=== PATIENT | male | born 1940 | race Caucasian/White ===

== ENCOUNTER 2020-09-12 14:03 | Observation (INO) | payer MEDICARE, SELFPAY ==
[2020-09-12] VITALS (7 sets, daily range): BP systolic 117–134; BP diastolic 62–78; PULSE 65–89; RESP 12–16; TEMP 36.3–36.7; O2SAT 96–100; BMI 25.2
--- NOTE | ~2020-09-12 | US_ITS ---
EXAMINATION: US abdomen limited EXAM DATE: 09/12/2020 16:47 INDICATION: Right upper quadrant pain. TECHNIQUE: Multiple grayscale and Doppler images of the abdomen right upper quadrant were obtained (b y a technologist who performed the scan) and subsequently reviewed. There is no prior study for nimo quintanilla. FINDINGS: The pancreatic head and body are normal in appearance. The pancreatic tail is not visualized. The l iver has normal echogenicity and contour. There are no focal liver lesions identified. There is no evidence of intrahepatic biliary duct dilation. Portal venous flow was seen in the hepatopedal, nor mal direction and has normal Doppler waveform. No right-sided hydronephrosis. Common bile duct measures 7 mm, which is normal for age. The gallbladder wall is normal in thickness, with expected amount of distention. No sonographic evidence of pericholecystic fluid. There is no cholelithiases. Technologist performing exam reports patient did not demonstrate sonographic Porter's sign. Please note that this sign is less reliable in patients who have received pain medication. IMPRESSION: 1. Unremarkable abdominal ultrasound exam. Reviewed, dictated and finalized at location A.
--- NOTE | ~2020-09-12 | CT_ITS ---
EXAMINATION: CT abdomen pelvis wo con EXAM DATE: 09/12/2020 18:31 INDICATION: Right flank pain and hematuria. TECHNIQUE: Spiral CT of the abdomen and pelvis was performed without contrast. Axial, coronal and sag ittal images were reviewed. The dose-length product (DLP) for this examination was 269.33 mGy-cm. T he exposure was tailored according to patient size (auto mA exposure control), and iterative reconstr uction (ASIR) was used as additional dose reduction technique. There is no prior study for compariso n. FINDINGS: There is 7 mm stone in the proximal aspect right ureter. Mild to moderate right-sided hydro nephrosis. There is 7 mm stone right superior calyx, additional punctate mid calyceal stone. Left carlos al peripelvic cysts versus mild to moderate hydronephrosis, but normal calibered ureter. Moderate pro statomegaly. The bladder is unremarkable. The liver, spleen, adrenal glands and pancreas are unrema rkable. Gallbladder is unremarkable. No biliary obstruction. There is no retroperitoneal or pelvic lymphadenopathy. There is mild scattered arteriosclerotic disease. The appendix is normal. There is small sliding gastroesophageal hiatal hernia. There is moderate am ount of colonic stool. There is mild to moderate scattered colonic diverticulosis. There is no adjac ent inflammatory change to suggest diverticulitis. No free intraperitoneal gas. The heart is monica l in size. There are no pericardial or pleural effusions. Left lower lobe 2 cm granuloma. There ar e no osteoblastic or osteolytic lesions identified. IMPRESSION: 1. Right proximal ureteral 7 mm stone, mild to moderate obstructive nephropathy. 2. Left renal hilar appearance more likely parapelvic cysts than hydronephrosis. 3. Right nephrolithiasis. 4. Moderate prostatomegaly. 5. Scattered colonic diverticulosis. Reviewed, dictated and finalized at location A. IMPRESSION: 1. Right proximal ureteral 7 mm stone, mild to moderate obstructive nephropath y. 2. Left renal hilar appearance more likely parapelvic cysts than hydronephrosi s. 3. Right nephrolithiasis. 4. Moderate prostatomegaly. 5. Scattered colonic diverticulosis.
--- NOTE | ~2020-09-12 | XR_ITS ---
EXAMINATION: XR abdomen/kub 1V DATE: 09/13/2020 05:37 INDICATION: Renal stone TECHNIQUE: A supine view of the abdomen was obtained. COMPARISON: CT dated 09/12/2020 FINDINGS: There are multiple tiny densities within the fecal stream of the colon projecting over the right kidn ey. A more linear 4 mm opacity projecting over the region of the upper pole of the right kidney may r epresent the previous noted right renal stone. A 6 mm proximal right ureteral stone projects over the right lateral margin of the L3-L4 disc space. There are few phleboliths in the pelvis. No dilated lo ops of bowel to suggest obstruction. Large calcified nodule in the left lower lobe consistent with ol d granulomatous disease. IMPRESSION: 1. Right nephrolithiasis. Reviewed, dictated and finalized at location A. IMPRESSION: 1. Right nephrolithiasis.
[2020-09-12 15:11] LABS: Basophils Percent Auto 0.2 % (0.2-1.2); Hemoglobin 15.2 g/dL (14.0-18.0); Immature Granulocyte Absolute 0.03 K/mm3 (0.00-0.031); Immature Granulocyte Percent A 0.2 % (0-0.5); Lymphocytes Absolute Auto 0.77 K/mm3 (0.9-3.2); Lymphocytes Percent Auto 6.4 % (18.3-44.2); Mean Corpuscular HGB Conc 34.5 g/dl (32-36); Mean Corpuscular Hemoglobin 31.5 pg (26-34); Mean Corpuscular Volume 91.1 fl (80-100); Monocytes Absolute Auto 0.4 K/mm3 (0.1-0.6); Monocytes Percent Auto 3.1 % (2.6-8.5); Neutrophils Absolute Auto 10.9 K/mm3 (1.3-6.7); Neutrophils Percent Auto 90.1 % (45.5-73.1); Platelet Count Result 238 k/mm3 (150-375); Red Blood Count 4.83 M/mm3 (4.6-6.20); Red Cell Distribution Width 12.8 % (11.5-14.5); White Blood Count 12.1 K/mm3 (4.5-10.0)
[2020-09-12 15:24] LABS: Add Urine Microscopic? YES; Appearance Urine Cloudy (Clear); Bacteria Urine Trace /hpf; Bilirubin Urine Negative (Negative); Color Urine Yellow (Yellow); Glucose Urine UA Negative (Negative); Ketones Urine Trace mg/dL (Negative); Leukocyte Esterase Ur Trace LEU/UL (Negative); Mucus Urine Rare /lpf; Nitrate Urine Negative (Negative); Protein Urine 1+ mg/dL (Negative); RBC Urine 21-50 /hpf (0-2); Specific Grav Ur 1.024 (1.001-1.035); Squamous Epithelial Cell Urine Rare /hpf (Few); Urobilinogen Urine Negative mg/dL (<2.0)
[2020-09-12 15:28] LABS: Blood Urine Negative (Negative)
[2020-09-12 15:29] LABS: Alanine Aminotransferase 41 U/L (4-50); Albumin Level 4.5 g/dL (3.5-5.1); Alkaline Phosphatase 63 U/L (38-126); Anion Gap 9 mmol/L (8-16); Aspartate Amino Transferase 42 U/L (17-59); Blood Urea Nitrogen 26 mg/dL (9-20); Calcium 9.5 mg/dL (8.4-10.2); Carbon Dioxide 27 mmol/L (22-30); Chloride 103 mmol/L (98-107); Estimated CRCL calculation 33 ml/min; Estimated Glomerular Filt Rate 53; Glucose 121 mg/dL (65-110); Lipase 46 U/L (23-300); Potassium 4.3 mmol/L (3.4-5.0); Sodium 139 mmol/L (137-145)
--- NOTE | 2020-09-12 17:39 | ED.ABDPAIN ---
HPI - Abdominal Pain General Chief Complaint: Abdominal Pain Stated Complaint: right abd pain/vomiting Time Seen by Provider: 09/12/20 15:57 Source: patient Mode of arrival: ambulatory Limitations: no limitations History of Present Illness HPI narrative: 80-year-old male Mostly healthy, did have a somewhat recent prostate procedure Complains of onset at about 3AM of pain in the right upper quadrant and right flank accompanied by nausea Was not exacerbated by eating He denies diarrhea or constipation, fever, dysuria or hematuria, cough or shortness of breath No previous abdominal operations Related Data Allergies Allergy/AdvReac Type Severity Reaction Status Date / Time bacitracin Allergy Intermediate RASH Verified 08/21/20 15:32 neomycin Allergy Intermediate RASH Verified 08/21/20 15:32 polymyxin B Allergy Intermediate RASH Verified 08/21/20 15:32 Review of Systems Review of Systems: All systems reviewed & are unremarkable except as noted in HPI and below Constitutional: Constitutional: Reports no additional constitutional complaints, Denies chills, Denies fever(s) and Denies headache(s) Eyes: Eyes: Reports no additional eye complaints and Denies change in vision ENT: Denies headache(s) and Denies sore throat Cardiovascular: Cardiovascular: Denies chest pain and Denies dyspnea Respiratory: Respiratory: Denies cough and Denies dyspnea Gastrointestinal: Gastrointestinal: Reports abdominal pain, Denies diarrhea, Reports nausea and Reports vomiting Genitourinary: Genitourinary: Denies dysuria and Denies urinary frequency Musculoskeletal: Musculoskeletal: Denies deformity, Denies arthralgias, Denies joint swelling and Denies numbness Integumentary/Breasts: Skin/Breast: Denies rash and Denies wounds Neurologic: Denies headache(s), Denies focal weakness and Denies numbness Psychiatric: Psychiatric: Reports no additional psychiatric complaints Endocrine: Endocrine: Reports no additional endocrine complaints Hematologic/Lymphatic: Hematologic/Lymphatic: Reports no additional hematologic/lymphatic complaints Allergic/Immunologic: Allergic/Immunologic: Reports no additional allergic/immunologic complaints [facility] Surgical History Surgical History (Updated 08/21/20 @ 15:36 by Jose Ann MD) H/O 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 Exam Const: General: cooperative, no acute distress and alert Orientation/consciousness: patient oriented x3 (alert) HENMT: Head: normal to inspection, normocephalic and atraumatic Ears: external ears normal General nose exam: no epistaxis Eyes: Conjunctivae: conjunctivae normal EOM: EOMs intact bilaterally Neck: Neck: normal visual inspection, supple and no JVD Resp: Effort & Inspection: normal respiratory effort and not labored Auscultation: clear to auscultation bilaterally, no rales, no rhonchi, no wheezes and other (BS =) Cardio: Rate: regular rate Rhythm: regular rhythm Heart sounds: no murmurs GI: Inspection: non-distended GI Palp: Yes Soft to palpation, No Tenderness to palpation present (GI), No Guarding due to palpation present (GI) and No Rebound tenderness present : General: Yes no CVA tenderness Skin: General skin exam: normal color and no rashes or lesions noted Neuro: General: patient oriented x3 (alert) and moves all extremities Speech: normal speech Extrem: General: normal to inspection and no pedal edema Psych: Affect: normal affect Course Course Emergency Course: Lg proximal stone, +/- infxn, will need abx, stent, eventual litho d/w dr combs, he will admit, plan procedure tomorrow Vital Signs Vital signs: Vital Signs Temperature 36.5 C 09/12/20 14:29 Pulse Rate 88 09/12/20 14:29 Respiratory Rate 16 09/12/20 14:29 Blood Pressure 121/78 09/12/20 14:29 Pulse Oximetry 99 09/12/20 14:29 Temperature 36.3 C L 09/12/20 20:49 Pulse Rate 82 09/12/20 20:49 Respiratory Rate 16
[2020-09-12] MEDS: KETOROLAC 15 MG/ML VIAL (*BKC) IV PUSH (20:42)
--- NOTE | 2020-09-12 22:07 | PC.NURSE ---
Unit unable to take report at this time. Unit will call ED shortly.
--- NOTE | 2020-09-12 22:57 | ADMGEN ---
This patient, Mario Yepez, was admitted to [address] [place] [address] Room 300-01. Patient/family oriented to hospital policies and general routines including ID bracelet, bed and alarms, visiting hours, pain management, procedures, bathroom and other care routines, personal items, smoking policy, room service/diet, and visiting hours. Information on how to activate the Rapid Response Team has been discussed. Patient/Family are encouraged to report perceived risks to care and to ask questions if they do not understand what they are told or what they should do.
[2020-09-12] MEDS: LACTATED RINGERS 1,000 ML 80 ML IV CONT (23:25)
[2020-09-13 06:00] VITALS: BP 123/71; PULSE 86; RESP 18; TEMP 36.6; O2SAT 100
--- NOTE | 2020-09-13 06:57 | PM.IMHP ---
H&P: HPI History of Present Illness Date/Time: 09/13/20 06:57 A 80-year-old who has spontaneously passed a ureteral stone in the remote past. He has a history of BPH and has undergone Rezum therapy in [facility]. He presents to the ER here with acute onset right flank pain associated with nausea and no vomiting. He denies fevers chills or gross hematuria. Imaging reveals a 7 mm right proximal ureteral stone with moderate hydronephrosis and a 7 mm right mid calyceal stone. Subsequent to admission he has been pain-free. 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 Social History Social History Smoking status: Never smoker Alcohol intake: never Substance use: never Gender identity (if verbalized by the patient): Male Spiritual care concerns: No Meds Home Medications and Allergies Home Medications Medication Instructions Recorded Confirmed Type simvastatin 20 mg PO DAILY 09/12/20 09/12/20 History Allergies Allergy/AdvReac Type Severity Reaction Status Date / Time bacitracin Allergy Intermediate RASH Verified 08/21/20 15:32 neomycin Allergy Intermediate RASH Verified 08/21/20 15:32 polymyxin B Allergy Intermediate RASH Verified 08/21/20 15:32 Vital Signs Vital Signs - 24 hr 09/12/20 14:29 09/12/20 16:50 09/12/20 18:03 Temperature 97.7 F 97.7 F Pulse Rate 88 65 89 Respiratory Rate 16 12 Blood Pressure 121/78 126/72 134/75 Pulse Oximetry 99 100 99 09/12/20 19:04 09/12/20 20:49 09/12/20 22:20 Temperature 97.7 F 97.4 F L 98.1 F Pulse Rate 81 82 88 Respiratory Rate 16 16 Blood Pressure 128/62 117/65 117/69 Pulse Oximetry 99 96 98 09/12/20 23:47 Temperature Pulse Rate 88 Respiratory Rate 16 Blood Pressure Pulse Oximetry 98 Exam Const: General: no acute distress Resp: Effort & Inspection: normal respiratory effort GI: Inspection: non-distended GI Palp: No abdominal tenderness and No Guarding due to palpation present (GI) Auscultation: normal bowel sounds H&P: Results Labs Labs: Short CBC 09/12/20 Range/Units 14:43 WBC 12.1 H (4.5-10.0) K/mm3 Hgb 15.2 (14.0-18.0) g/dL Hct 44.0 (42.0-52.0) % Plt Count 238 (150-375) k/mm3 BMP 09/12/20 14:43 Sodium 139 Potassium 4.3 Chloride 103 Carbon Dioxide 27 BUN 26 H Creatinine 1.30 Glucose 121 H Calcium 9.5 Liver Function 09/12/20 Range/Units 14:43 Total Bilirubin 1.0 (0.2-1.3) mg/dL AST 42 (17-59) U/L ALT 41 (4-50) U/L Alkaline Phosphatase 63 (38-126) U/L Albumin 4.5 (3.5-5.1) g/dL Urine 09/12/20 Range/Units 14:43 Urine Color Yellow (Yellow) Urine Appearance Cloudy H (Clear) Urine pH 5.0 (5.0-9.0) Ur Specific Bland 1.024 (1.001-1.035) Urine Protein 1+ H (Negative) mg/dL Urine Glucose (UA) Negative (Negative) mg/dL Assessment and Plan Assessment and plan (1) Right ureteral stone: Code(s): N20.1 - Calculus of ureter Status: Acute (2) Right renal stone: Code(s): N20.0 - Calculus of kidney Status: Acute Assessment and Plan: This patient has been pain-free since admission he is requesting discharge with outpatient therapy. We discussed options and elected to schedule right ESWL. He is to get a KUB today for stone position.
--- NOTE | 2020-09-13 07:06 | PM.DS ---
DS: Admitting Diagnosis Admitting Diagnosis Admitting Diagnosis: Right proximal ureteral stone DS: Summary Hospital Course Hospital Course: Patient was visiting his daughter from [place] who presented to the ER with right flank pain. Imaging demonstrated an obstructing 7 mm right proximal ureteral stone and a 7 mm right kidney stone. He was admitted overnight for hydration and analgesics. Subsequent to admission he had essentially no pain. He requested discharge with outpatient therapy. We will schedule him for right ESWL. Time Spent with Patient Time attestation: Total time spent providing and/or coordinating discharge services: 20 min. Exam Const: General: no acute distress Resp: Effort & Inspection: normal respiratory effort GI: Inspection: non-distended GI Palp: No abdominal tenderness and No Guarding due to palpation present (GI) Auscultation: normal bowel sounds DS: Data Data Completed and Pending Labs on day of discharge: Labs from last 24 hours 09/12/20 09/12/20 09/12/20 14:43 14:43 14:43 WBC 12.1 H RBC 4.83 Hgb 15.2 Hct 44.0 MCV 91.1 MCH 31.5 MCHC 34.5 RDW 12.8 Plt Count 238 MPV 10.0 Immature Gran % (Auto) 0.2 Neut % (Auto) 90.1 H Lymph % (Auto) 6.4 L Glynn % (Auto) 3.1 Eos % (Auto) 0.0 Baso % (Auto) 0.2 Lymph # (Auto) 0.77 L Glynn # (Auto) 0.4 Eos # (Auto) 0.0 Baso # (Auto) 0.0 Abs Immat Gran (auto) 0.03 Absolute Neuts (auto) 10.9 H Absolute Nucleated RBC 0.0 Nucleated RBC % 0.0 Sodium 139 Potassium 4.3 Chloride 103 Carbon Dioxide 27 Anion Gap 9 BUN 26 H Creatinine 1.30 Estim Creat Clear Calc 33 Estimated GFR 53 L Glucose 121 H Calcium 9.5 Total Bilirubin 1.0 AST 42 ALT 41 Alkaline Phosphatase 63 Total Protein 8.0 Albumin 4.5 Lipase 46 Urine Color Yellow Urine Appearance Cloudy H Urine pH 5.0 Ur Specific [place] 1.024 Urine Protein 1+ H Urine Glucose (UA) Negative Urine Ketones Trace Ur Blood (Man) Negative Urine Nitrate Negative Urine Bilirubin Negative Urine Urobilinogen Negative Leukocyte Esterase Rfl Trace H Urine RBC 21-50 H Urine WBC 7-9 H Ur Squamous Epith Cells Rare Urine Bacteria Trace Urine Mucus Rare Discharge Plan Discharge Attending physician on discharge: Jeffry Harris Discharging Clinician: Jeffry Harris Patient Disposition: Home, Self-Care Activity: june shower Diet: as tolerated Patient Instructions: Antibiotic Form Stand Alone Forms: General Discharge Information Follow-up/Referrals: Jeffry Harris MD [Physician] - Discharge Medications: New oxycodone-acetaminophen [Percocet] 5-325 mg tablet 1 - 2 tablet PO Q6H PRN (Reason: pain) Qty: 30 RF: 0 sulfamethoxazole-trimethoprim 800-160 mg tablet 1 tablet PO Q12H Qty: 14 RF: 0 tamsulosin 0.4 mg capsule 0.4 mg PO DAILY Qty: 7 RF: 0 Continued simvastatin 20 mg tablet 20 mg PO DAILY RF: 0 Date of admission: 09/12/20 21:04 Primary Care Provider: Jose Ann Admitting Provider: Jeffry Harris Attending physician on admission: Jeffry Harris Condition: Stable
== END 2020-09-13 08:47 | disposition home or self-care (01) ==
LOC: ANHED 21:20 → ANH3MEDSUR 22:08
PROVIDERS: Emergency Medicine; Admitting Provider Urology; Emergency Provider Emergency Medicine; PCP Family Medicine; Visit Provider Urology
DX: N13.30 Unspecified hydronephrosis (principal); N20.2 Calculus of kidney with calculus of ureter; N40.0 Benign prostatic hyperplasia without lower urinary tract symptoms
CPT/HCPCS: 36415; 74018; 74176; 76705; 80053; 81001; 83690; 85025; 87086; 96361; 96365; 96375; 99285; G0378; J0696; J1885; J7120

== ENCOUNTER 2020-09-14 02:35 | Day surgery (SDC) | payer MEDICARE, SELFPAY ==
[2020-09-13 17:20] VITALS: BMI 27.7
[2020-09-14] VITALS (8 sets, daily range): BP systolic 114–133; BP diastolic 63–85; PULSE 73–90; RESP 10–16; TEMP 36.7–36.9; O2SAT 95–100
--- NOTE | ~2020-09-14 | XR_ITS ---
EXAMINATION: XR abdomen/kub 1V INDICATION: Right ureterolithiasis TECHNIQUE: Supine views of the abdomen were obtained on 2 radiographs. COMPARISON: 09/13/2020 FINDINGS: A 6 mm stone projects at the expected location of the proximal right ureter at the level of the inferior margin of the L3 vertebral body. The bowel gas pattern is normal. There are phleboliths of the pelvis. A 7 mm stone is noted in the right kidney upper pole. The visualized lung bases are c lear. There is calcified granuloma of the left lower lobe. IMPRESSION: 1. Right ureterolithiasis. 2. Right nephrolithiasis. Reviewed, dictated and finalized at location B.
[2020-09-14] MEDS: LACTATED RINGERS 1,000 ML 30 ML IV CONT (08:50)
--- NOTE | 2020-09-14 09:50 | WPDANESEPPF ---
Anes - Initial Pre Proc Eval Procedure: Operation Date: 09/14/20 10:00 Proposed Procedures p Right Renal Extracorporeal Shock Wave Lithotripsy - Kirt Pulido MD Date/Time: 09/14/20 09:50 Surgeon: Kirt Pulido MD Pre Op Diagnosis: right kidney stone Patient Data Age: 80 Gender: M Height: 1.6 m Weight: 71 kg Last Vital Signs Temp 36.7 C 09/14/20 08:22 Pulse 90 09/14/20 08:22 Resp 16 09/14/20 08:22 BP 122/70 09/14/20 08:22 Pulse Ox 97 09/14/20 08:22 Allergies Allergy/AdvReac Type Severity Reaction Status Date / Time bacitracin Allergy Intermediate RASH Verified 09/14/20 08:30 neomycin Allergy Intermediate RASH Verified 09/14/20 08:30 polymyxin B Allergy Intermediate RASH Verified 09/14/20 08:30 Home Medications Medication Instructions Recorded Confirmed Type simvastatin 20 mg PO DAILY 09/12/20 09/13/20 History alprazolam 0.5 mg PO PRN PRN 09/13/20 09/13/20 History oxycodone-acetaminophen 1 tablet PO Q6H PRN #20 tablet 09/13/20 Rx sulfamethoxazole-trimethoprim 1 tablet PO Q12H #14 tablet 09/13/20 Rx tamsulosin 0.4 mg PO DAILY #7 cap 09/13/20 Rx Patient hx anesthesia problems: none Family hx anesthesia problems: none PMFSH Past Medical History Medical History Anxiety Hyperlipidemia Surgical History Surgical History H/O 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 Social History Social History Smoking status: Never smoker Alcohol intake: former Alcohol use details: occasional Substance use: never Substance use type: does not use Living arrangements: with family Gender identity (if verbalized by the patient): Male Spiritual care concerns: No Anes - Eval Final PreProcedure Day of Procedure 09/14/20 09:50 Patient weight: overweight Heart: regular rate and rhythm Lungs: clear to auscultation Airway: Mallampati scale class II Neurological: alert and oriented Last oral intake: >/= 8 hours ASA classification: II Emergent: no Anesthetic plan: proceed Anesthesia type and monitoring: general LMA and standard monitoring Informed Consent: The patient's anesthetic plan and its attendant risks and benefits were discussed with the patient/family/POA. Questions were solicited and answers provided to the satisfaction of the patient/family/POA.
--- NOTE | 2020-09-14 09:53 | WPDHPUPDATE1 ---
History and Physical Update Update Date/Time: 09/14/20 09:53 History and Physical has been reviewed, including an updated exam of the patient. There are NO changes in the patient's condition. Risks, benefits, and alternatives have been discussed and questions answered. Patient agrees to proceed with procedure. proceed with right ureteral eswl
[2020-09-14] MEDS: ceFAZolin 2 GM/D5W 50 ML 2 GM/50 ML BAG IVPB (10:10)
--- NOTE | 2020-09-14 10:38 | P.OP_ITS ---
Procedure Note - Detailed Date of Procedure 09/14/20 Pre-op Diagnosis right Ureteral stone Post-op Diagnosis same Procedure Performed ESWL right ureteral calculus Surgeon Kirt Pulido MD Anesthesia general Description of Procedure patient is taken the operative suite and correctly identified. Once anesthesia was obtained the stone was localized in both planes. Twenty-five Kinyarwanda shocks renal stone. There appeared to be good fragmentation. Patient was taken recovery stable condition. He will follow up in 7-10 days with KUB. Drains No Packing No Pathology none sent Complications No immediate complications Condition stable Disposition PACU
== END 2020-09-14 13:10 | disposition home or self-care (01) ==
PROVIDERS: PCP Family Medicine; Visit Provider Urology
PROC: (CPT 50590; principal; 2020-09-14 10:00)
DX: N20.1 Calculus of ureter (principal); E78.5 Hyperlipidemia, unspecified; F41.9 Anxiety disorder, unspecified
CPT/HCPCS: 50590; 74018; J0690; J1170; J2250; J2370; J2704; J7120

== ENCOUNTER 2020-09-27 15:13 | Outpatient (CLI) | payer MEDICARE, SELFPAY ==
--- NOTE | ~2020-09-27 | XR_ITS ---
EXAMINATION: XR abdomen/kub 1V DATE: 09/27/2020 15:58 INDICATION: Kidney stones. TECHNIQUE: A supine view of the abdomen on 2 radiographs was obtained. COMPARISON: Abdomen radiographs 09/14/2020, CT abdomen and pelvis 09/12/2020 FINDINGS: There are no dilated loops of bowel. There is a moderate volume of stool in colon. There ar e phleboliths in the pelvis. There is a 7 mm stone in right kidney. IMPRESSION: 1. Right kidney stone. Reviewed, dictated and finalized at location A. IMPRESSION: 1. Right kidney stone.
== END 2020-09-27 15:14 | disposition home or self-care (01) ==
LOC: ANHIMG 15:25
PROVIDERS: PCP Family Medicine; Visit Provider Urology
DX: N20.0 Calculus of kidney (principal)
CPT/HCPCS: 74018

== ENCOUNTER 2022-08-13 09:55 | Emergency (ER) | payer MEDICARE, SELFPAY ==
--- NOTE | 2022-08-13 09:57 | ED.MALEGU ---
HPI - Male Genitourinary General Chief complaint: Urogenital-Male Stated complaint: URINARY PROBLEMS Time Seen by Provider: 08/13/22 10:12 Source: patient and RN notes reviewed Mode of arrival: ambulatory Limitations: no limitations History of Present Illness HPI Narrative: 82-year-old male presents with concern for urine frequency, mild dysuria for the past week, noticed white flakes in his urine today. He reports he had a UTI about 6 weeks ago that he was treated with cephalexin. Reports history of kidney stones. Denies fever, aches, chills, sweats, abdominal pain, nausea, vomiting, back pain MD Complaint: dysuria Related Data Allergies Allergy/AdvReac Type Severity Reaction Status Date / Time bacitracin Allergy Intermediate RASH Verified 09/30/21 13:15 neomycin Allergy Intermediate RASH Verified 09/30/21 13:15 polymyxin B Allergy Intermediate RASH Verified 09/30/21 13:15 Review of Systems Review of Systems: CONSTITUTIONAL: Denies malaise, chills, sweats, or fever. CARDIOVASCULAR: Denies chest pain, palpitations, or edema. RESPIRATORY: Denies cough or dyspnea. GASTROINTESTINAL: Denies abdominal pain, nausea, vomiting, diarrhea GENITOURINARY: Reports dysuria, frequency, flecks in his urine. Denies urgency, suprapubic pressure. Denies flank pain or hematuria. SKIN: Denies rash or itching. MUSCULOSKELETAL: Denies back pain or myalgia. 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 There is no relevant family history pertinent to the presenting complaint Exam Narrative: GENERAL: Well-appearing, well-nourished, and in no acute distress. HEAD: Normocephalic. EYES: PERRLA, conjunctivae clear. NECK: Supple. No lymphadenopathy CHEST: Clear to auscultation. No respiratory distress. HEART: Regular rate and rhythm. ABDOMEN: Soft, nontender upon palpation, nondistended, normal active bowel sounds, no palpable or pulsatile masses, no guarding. No CVA tenderness SKIN: Warm, dry, no rash. NEURO: Alert and oriented x3. PSYCH: Normal mood and affect Course Course Emergency Course: Patient is aware of diagnosis, understands and agrees to treatment plan. Anticipatory guidance given. Patient agrees to follow-up as directed and is aware of reasons to seek care at the emergency department. Portions of this record may have been created with voice recognition software Level of Care: Express Care Visit Vital Signs Vital signs: Reviewed. Critical Care Time Critical Care Time Critical Care Time: No Discharge Plan Discharge Clinical Impression: Urinary tract infection Patient Disposition: Home, Self-Care Condition: Stable Instructions: Antibiotic Form, Urinary Tract Infection in Men (ED) Additional Instructions: We will send a urine culture to the lab; if the culture identifies an organism that the prescribed antibiotic will not treat, you will receive a phone call from an urgent care staff member and an appropriate antibiotic will be prescribed. -Your symptoms should begin to improve within a day of starting antibiotics. But you should finish all the antibiotic pills you get. Otherwise your infection might come back. -Also recommend: increase sabiha
[2022-08-13 10:07] VITALS: BP 109/77; PULSE 96; RESP 16; TEMP 36.5; O2SAT 98
== END 2022-08-13 10:26 | disposition home or self-care (01) ==
PROVIDERS: Emergency Provider Nurse Practitioner; PCP Emergency Medicine
DX: N39.0 Urinary tract infection, site not specified (principal); E78.5 Hyperlipidemia, unspecified; F41.9 Anxiety disorder, unspecified
CPT/HCPCS: 81003; 87086; 87147; 87181; 87186; 99213; G0463

== ENCOUNTER 2022-09-17 08:47 | Emergency (ER) | payer MEDICARE, SELFPAY ==
--- NOTE | ~2022-09-17 | XR_ITS ---
XR abdomen/kub 1V DATE: 09/17/2022 09:25 INDICATION: Abdominal pain, right flank pain TECHNIQUE: 2 supine AP views of the abdomen COMPARISON: 09/27/2020 KUB 09/12/2020 CT abdomen pelvis Degenerative changes of the thoracic and lumbar spine. No suspicious osteolytic or osteoblastic lesio ns are noted. FINDINGS: Large calcified left basilar lower lobe pulmonary granuloma is again noted. Heart size appe ars normal. No consolidation is noted at the lung bases. The psoas shadows are intact. No visceromegaly is evident. There is a prominent amount fecal material in the ascending colon, hepatic flexure, transverse colon, splenic flexure. No bowel obstruction is detected. No significant abnormal calcification is noted. Previously reported right calcified calculus on 021 is not evident on the current radiograph. There is osteopenia IMPRESSION: Nonspecific abdomen Reviewed, dictated and finalized at [facility]. Reviewed, dictated and finalized at location [facility]. IMPRESSION: Nonspecific abdomen
--- NOTE | 2022-09-17 08:53 | ED.ABDPAIN ---
HPI - Abdominal Pain General Chief Complaint: Back Pain/Injury Stated Complaint: pain in back & abdomen; kidney stone Time Seen by Provider: 09/17/22 08:52 Source: patient Mode of arrival: ambulatory Limitations: no limitations History of Present Illness HPI narrative: Mr. Yepez is an 82-year-old male patient presenting to the clinic today with complaints of lower abdomen pain, urinary frequency, right flank pain, nausea, and chills that started yesterday. Recently has been treated for a urinary tract infection with Macrobid. Urine culture came back on August 15 2022 showing Enterococcus species and he was switched to Macrobid at that time. He reports he took all the medication as directed. Denies any known fever. Related Data Home Medications Medication Instructions Recorded Confirmed cholecalciferol (vitamin D3) 25 25 mcg PO DAILY 08/18/22 09/17/22 mcg (1,000 unit) capsule tamsulosin 0.4 mg capsule 0.4 mg PO BID BPH 08/18/22 09/17/22 Allergies Allergy/AdvReac Type Severity Reaction Status Date / Time bacitracin Allergy Intermediate RASH Verified 09/17/22 09:18 neomycin Allergy Intermediate RASH Verified 09/17/22 09:18 polymyxin B Allergy Intermediate RASH Verified 09/17/22 09:18 Review of Systems Review of Systems: Pertinent positives per HPI. Patient denies any fever, rash, headache, visual changes, dizziness, cough, runny nose, sore throat, shortness of breath, chest pain, palpitations, vomiting, diarrhea, or any constipation. PMFSH Past Medical History Medical History Anxiety Hyperlipidemia Surgical History Surgical History H/O 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 Social History Social History Smoking status: Never smoker Alcohol intake: former Alcohol use details: occasional Substance use: never Substance use type: does not use Lack of Transportation: No Lack of Food: Never True Current Housing: I Have Housing Concerned About Future Housing: No Difficulty Paying Gas/Electric Bills: No Difficulty Paying for Meds: No Currently Unemployed: No Difficulty w/ Childcare or Family Care: No Living arrangements: with family Gender identity (if verbalized by the patient): Male Spiritual care concerns: No Comments At the time of my signature, I reviewed and agree with the nursing past medical, surgical, social, and family history. There is no relevant family history pertinent to the patient complaint. Exam Narrative: General: Well-developed, well nourished, in no apparent distress. Head: Normocephalic, atraumatic. Cardio: Regular rate and rhythm, s1 and s2 normal, no murmur appreciated. Resp: Clear to auscultation bilaterally, no rhonchi, rales, wheezing or rubs. Abdomen: Soft, pliable, bowel sounds present in all quadrants, lower abdominal tender to palpation, no organomegly, right CVAT tenderness. Course Course Emergency Course: Portions of this record may have been created with voice recognition software. Level of Care: Express Care Visit Vital Signs Vital signs: Vital Signs Temperature 36.6 C 09/17/22 09:00 Pulse Rate 73 09/17/22 09:00 Respiratory Rate 16 09/17/22 09:00 Blood Pressure 141/74 H 09/17/22 09:00 Pulse Oximetry 99 09/17/22 09:00 Temperature 36.6 C 09/17/22 09:00 Pulse Rate 73 09/17/22 09:00 Respiratory Rate 16 09/17/22 09:00 Blood Pressure 141/74 H 09/17/22 09:00 Pulse Oximetry 99 09/17/22 09:00 Oxygen Delivery Room Air 09/17/22 09:02 Vital signs reviewed MDM - Abdominal Pain MDM Narrative Medical decision making narrative: At the time of visit patient is resting comfortably on exam table. Urinalysis shows 2+ blood, 1+ leukocytes, and protein in the urine. Patient is having ri
[2022-09-17 09:00] VITALS: BP 141/74; PULSE 73; RESP 16; TEMP 36.6; O2SAT 99
== END 2022-09-17 09:58 | disposition short-term general hospital (02) ==
PROVIDERS: Emergency Provider Nurse Practitioner Family; PCP Emergency Medicine
DX: N10 Acute pyelonephritis (principal); E78.5 Hyperlipidemia, unspecified
CPT/HCPCS: 74018; 81003; 87086; 99213; G0463

== ENCOUNTER 2022-09-17 10:23 | Inpatient (IN) | payer MEDICARE, SELFPAY ==
[2022-09-17] VITALS (8 sets, daily range): BP systolic 102–147; BP diastolic 63–78; PULSE 64–86; RESP 16–20; TEMP 36.4–37.1; O2SAT 96–100; BMI 26.4
--- NOTE | ~2022-09-17 | XR_ITS ---
EXAMINATION: XR stent kub - surgery DATE: 09/18/2022 12:10 INDICATION: Right internal ureteral stent placement TECHNIQUE: Fluoroscopic images from a right internal ureteral stent placement are submitted for micah aragon 26 seconds of fluoroscopy time. 4 fluoroscopic images FINDINGS: There is a right double-J internal ureteral stent projecting in expected position, with proximal Thornton loop at the level of the renal pelvis and distal loop in the pelvis within the bladder lumen. IMPRESSION: 1. Right internal ureteral stent placement. Please refer to real-time procedural findings for claudia sutton. Reviewed, dictated and finalized at location [facility]. IMPRESSION: 1. Right internal ureteral stent placement. Please refer to real-time procedu ral findings for details.
--- NOTE | ~2022-09-17 | CT_ITS ---
EXAMINATION: CT abdomen pelvis w con DATE: 09/17/2022 12:32 INDICATION: Right flank pain. History of kidney infection since June 2022 TECHNIQUE: Computed tomography (CT) of the abdomen and pelvis was performed with 100 CC Omnipaque 350 intravenous contrast. Automated exposure control and iterative reconstruction technique were employe d. Exam dose: 373.84 mGy-cm total exam DLP. COMPARISON: 09/17/2022 KUB 09/12/2020 CT abdomen pelvis FINDINGS: 4 mm nodular density along the posterior margin of the greater fissure anterior aspect of t he right lower lobe (series 4 image 5), probably a benign fissural node. 3.7 mm pleura-based hyperdense nodule at middle lobe, benign. Heavily calcified posterior basilar left lower lobe pulmonary granuloma. No infiltrate or consolidation at the lung bases. Normal heart size. No pericardial or pleural effusion. There are couple of probable left hepatic cysts, the larger 8 mm. The liver is otherwise unremarkable . The gallbladder is present. No gallbladder wall thickening or pericholecystic fluid or fat strandin g. No bile duct or pancreatic duct dilatation. Approximately 5.7 x 7.3 mm nonobstructing right renal calculus. Pinpoint nonobstructing right renal calculus. Approximately 2.9 x 5.8 mm obstructing right distal ureteral calculus with moderate right hydroureter onephrosis. There are left parapelvic renal cysts. No left urinary tract calculus. Prominent prostatomegaly, prostate calcification. Moderate diffuse thickening of the urinary bladder wall likely due to bladder outlet obstruction from the prostate enlargement. There is atherosclerotic calcification but normal caliber of the abdominal aorta. No intraperitoneal or retroperitoneal or pelvic mass lesion or adenopathy or ascites is detected. Normal appendix. Prominent amount of fecal material in the colon. Diverticulosis of descending and si gmoid colon; no CT evidence of diverticulitis. No bowel obstruction, bowel wall thickening, pneumatos is or intraperitoneal free air is detected. Diffuse idiopathic skeletal hyperostosis of the thoracic spine. Mild degenerative change of the lumba r spine with exception of some prominent degenerative spurring and joint space narrowing at the apoph yseal joints. IMPRESSION: Approximately 2.9 x 5.8 mm obstructing right distal ureteral calculus with moderate righ t hydroureteronephrosis Nonobstructive right renal calculi Left parapelvic renal cysts Left hepatic probable cysts Prominent prostate enlargement with moderate diffuse bladder wall thickening Diverticulosis of left colon; no evidence of diverticulitis Normal appendix Reviewed, dictated and finalized at [facility]. Reviewed, dictated and finalized at location B. IMPRESSION: Approximately 2.9 x 5.8 mm obstructing right distal ureteral calcu bandar with moderate right hydroureteronephrosis Nonobstructive right renal calculi Left parapelvic renal cysts Left hepatic probable cysts Prominent prostate enlargement with moderate diffuse bladder wall thickening Diverticulosis of left colon; no evidence of diverticulitis Normal appendix
[2022-09-17 11:53] LABS: Basophils Percent Auto 0.3 % (0.2-1.2); Eosinophils Percent Auto 0.1 % (0-4.4); Hematocrit 48.5 % (42.0-52.0); Immature Granulocyte Absolute 0.03 K/mm3 (0.00-0.031); Immature Granulocyte Percent A 0.3 % (0-0.5); Lymphocytes Absolute Auto 0.76 K/mm3 (0.9-3.2); Lymphocytes Percent Auto 6.5 % (18.3-44.2); Mean Corpuscular Hemoglobin 30.9 pg (26-34); Mean Corpuscular Volume 93.8 fl (80-100); Mean Platelet Volume 9.9 fl (7.4-10.4); Monocytes Absolute Auto 0.4 K/mm3 (0.1-0.6); Monocytes Percent Auto 3.4 % (2.6-8.5); Neutrophils Absolute Auto 10.4 K/mm3 (1.3-6.7); Neutrophils Percent Auto 89.4 % (45.5-73.1); Platelet Count Result 227 k/mm3 (150-375); Red Blood Count 5.17 M/mm3 (4.6-6.20); Red Cell Distribution Width 12.9 % (11.5-14.5); White Blood Count 11.7 K/mm3 (4.5-10.0)
[2022-09-17 11:56] LABS: Appearance Urine Clear (Clear); Bacteria Urine None Seen /hpf; Bilirubin Urine Negative (Negative); Blood Urine 3+ (Negative); Color Urine Yellow (Yellow); Glucose Urine UA Negative (Negative); Ketones Urine Negative (Negative); Leukocyte Esterase Ur 2+ LEU/UL (Negative); Nitrate Urine Negative (Negative); Non Pathogenic Casts 0-2; Protein Urine 1+ mg/dL (Negative); RBC Urine >100 /hpf (0-2); Specific Grav Ur 1.019 (1.001-1.035); Squamous Epithelial Cell Urine None seen /hpf (Few); WBC Urine 51-100 /hpf; pH Urine 6.5 (5.0-9.0)
[2022-09-17 12:02] LABS: Alanine Aminotransferase 39 U/L (6-50); Albumin Level 4.8 g/dL (3.5-5.1); Alkaline Phosphatase 66 U/L (38-126); Anion Gap 8 mmol/L (8-16); Aspartate Amino Transferase 42 U/L (17-59); Blood Urea Nitrogen 22 mg/dL (9-20); Calcium 9.2 mg/dL (8.4-10.2); Carbon Dioxide 28 mmol/L (22-30); Chloride 104 mmol/L (98-107); Estimated CRCL calculation 35 ml/min; Estimated Glomerular Filt Rate 58; Glucose 111 mg/dL (65-110); Lactic Acid Reflex 1.2 mmol/L (0.7-2.0); Potassium 4.3 mmol/L (3.4-5.0); Sodium 140 mmol/L (137-145)
[2022-09-17 12:04] LABS: Add Urine Microscopic? YES
[2022-09-17] MEDS: VANCOMYCIN 1,250 MG/NS 250 ML 1,250 MG/250 ML BAG 166.67 MG IVPB (13:29)
[2022-09-17] MEDS: diphenhydrAMINE HCl INJ 50 MG/ML VIAL IV PUSH (14:29)
[2022-09-17] MEDS: FAMOTIDINE 20 MG/2 ML VIAL IV PUSH (14:33)
--- NOTE | 2022-09-17 14:40 | PC.NURSE ---
9510 to nurses station stating pt experiencing redness to face. Vancomycin stopped, pt denies SOB, does indorse itching. EDP notified of pt condition. Orders received, see MAR
--- NOTE | 2022-09-17 14:55 | ED.GENADULT ---
HPI - General Adult General Chief complaint: Urogenital-Male Stated complaint: possible kidney infecton Time Seen by Provider: 09/17/22 11:27 History of Present Illness HPI narrative: Mario Yepez is an 82 y/o male who presents from today for evaluation of possible kidney infection. Atif states that he was treated for a UTI about 3 weeks ago but later found out that the antibiotic might not of worked. He started to have some burning with urination about 1 week ago and then started to have some right flank pain 2 days ago. He went to an UC today and was found to have a UTI and found out that is urine culture shows that he was resistant last time to most antibiotics other then Vancomycin and Ampicillin. He now reports of right flank pain, no active fevers/chills. He reports he did feel nauseated a little today. denies any severe lower abdominal discomfort. Denies changes with BM and reports up until today he was eating ok. Related Data Home Medications Medication Instructions Recorded Confirmed cholecalciferol (vitamin D3) 25 25 mcg PO DAILY 08/18/22 09/17/22 mcg (1,000 unit) capsule tamsulosin 0.4 mg capsule 0.4 mg PO BID BPH 08/18/22 09/17/22 multivitamin with minerals-folic 1 tablet PO DAILY 09/17/22 09/17/22 acid 0.4 mg tablet Allergies Allergy/AdvReac Type Severity Reaction Status Date / Time bacitracin Allergy Intermediate RASH Verified 09/17/22 16:56 neomycin Allergy Intermediate RASH Verified 09/17/22 16:56 polymyxin B Allergy Intermediate RASH Verified 09/17/22 16:56 diphenhydramine AdvReac Hallucinati Verified 09/17/22 16:56 [From Benadryl] ng vancomycin AdvReac Rash Verified 09/17/22 16:56 Review of Systems Review of Systems: CONSTITUTIONAL: Denies fever, chills, or sweats. EYES: Denies visual changes, redness, or discharge. ENT: Denies rhinorrhea, congestion, sore throat, or otalgia. CARDIOVASCULAR: Denies chest pain, palpitations, or edema. RESPIRATORY: Denies cough or dyspnea. GASTROINTESTINAL: Reports mild abdominal pain, right flank pain, GENITOURINARY: Reports right flank pain and dysuria SKIN: Denies rash or itching. MUSCULOSKELETAL: Denies back pain, joint pain, or myalgia. NEUROLOGIC: Denies headache, numbness, dizziness, or weakness. PSYCHIATRIC: Denies anxiety or depression. 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 Family History Family History Grandparent Acute myocardial infarction Social History Social History Smoking status: Never smoker Alcohol intake: former Alcohol use details: occasional Substance use: never Substance use type: does not use Lack of Transportation: No Lack of Food: Never True Current Housing: I Have Housing Concerned About Future Housing: No Difficulty Paying Gas/Electric Bills: No Difficulty Paying for Meds: No Currently Unemployed: No Education: High School Diploma/GED Difficulty w/ Childcare or Family Care: No Living arrangements: with family Gender identity (if verbalized by the patient): Male Spiritual care concerns: No Exam Narrative: GENERAL: Well-appearing, well-nourished, and in no acute distress. HEAD: Normocephalic, atraumatic. EYES: PERRLA and EOMI. ENT: Nares clear, no rhinorrhea or epistaxis. Mucous membranes moist. Oropharynx without tonsillar hypertrophy exudate or other lesions. NECK: Supple. No adenopathy or masses. No carotid bruits or JVD CHEST: Clear to auscultation. No respiratory distress. No wheezes rales or rhonchi HEART: Regular rate and rhythm. No murmur heard. Normal peripheral pulses. ABDOMEN: Soft, nondistend
[2022-09-17] MEDS: LACTATED RINGERS 1,000 ML 125 ML IV CONT (15:38)
[2022-09-17] MEDS: AMPICILLIN 1 GM/NS 50 ML 1 GM/50 ML BAG IVPB ×2 (15:54→21:58)
--- NOTE | 2022-09-17 16:54 | WPDURCON ---
Assessment and Plan Assessment and plan (1) Acute pyelonephritis: Code(s): N10 - Acute pyelonephritis Status: Acute Assessment and Plan: Continue Ampicillin, tailor to culture results. (2) Right renal stone: Code(s): N20.0 - Calculus of kidney Status: Acute Assessment and Plan: Not visible on KUB. Would need to f/u in clinic to evaluate further. (3) Right ureteral stone: Code(s): N20.1 - Calculus of ureter Status: Acute Assessment and Plan: Keep NPO after midnight. Obtain Consent: Cystoscopy, right stent placement, right retrograde pyelogram. Plan to go to the OR tomorrow with Dr. Harris. Patient will need definitive stone management as an outpatient once infection resolves. Urology Consult Note HPI Date Seen: 09/17/22 Time Seen: 16:54 Requesting Physician: Johnny Butler MD Primary Care Provider: Rachid Morrow MD Consult Narrative Reason for consult: Right Distal Ureteral Stone/UTI Narrative: Mario Yepez is a 82 year old male who presented to the ER with persistent UTI symptoms from the earlier today. He c/o dysuria that started one week ago accompanied by right flank pain that has worsened. He denies fever, chills or abdominal pain but he does have some nausea. He also denies hematuria. He was treated for an Enterococcus UTI on 08/13/22 with Macrobid but states that his symptoms returned quickly after finishing the antibiotics. A CT scan today reveals a 2.9x5.8mm right distal ureteral stone with moderate right hydronephrosis as well as a non obstructive right renal stone measuring 5x7mm, left renal cyst and BPH. KUB doesn't visualize the stones. 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 Review of Systems Cardiovascular: Cardiovascular: Denies chest pain Respiratory: Respiratory: Reports no additional respiratory complaints Gastrointestinal: Gastrointestinal: Denies abdominal pain, Reports nausea and Denies vomiting Genitourinary: Genitourinary: Denies hematuria, Reports dysuria, Reports flank pain, Denies urinary frequency, Denies urinary hesitancy, Denies urinary incontinence and Denies urinary urgency PMF Past Medical History Medical History Anxiety Hyperlipidemia Surgical History Surgical History H/O 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 Family History Family History Grandparent Acute myocardial infarction Social History Social History Smoking status: Never smoker Alcohol intake: former Alcohol use details: occasional Substance use: never Substance use type: does not use Lack of Transportation: No Lack of Food: Never True Current Housing: I Have Housing Concerned About Future Housing: No Difficulty Paying Gas/Electric Bills: No Difficulty Paying for Meds: No Currently Unemployed: No Education: High School Diploma/GED Difficulty w/ Childcare or Family Care: No Living arrangements: with family Gender identity (if verbalized by the patient): Male Spiritual care concerns: No Meds Home Medications and Allergies Home Medications Medication Instructions Recorded Confirmed Type simvastatin 20 mg tablet 20 mg PO DAILY #90 tabs 08/21/21 09/17/22 Rx cholecalciferol (vitamin D3) 25 25 mcg PO DAILY 08/18/22 09/17/22 History mcg (1,000 unit) capsule tamsulosin 0.4 mg capsule 0.4 mg PO BID BPH 08/18/22 09/17/22 History alprazolam 0.5 mg tablet 0.5 mg PO QHS PRN Insomnia #60 tabs 08/22/22 09/17/22 Rx multivitamin with minerals-folic 1 tablet PO DAILY 09/17/22 09/17/22 History acid 0.4 mg tablet Allergies Allergy/AdvReac Type Severity
--- NOTE | 2022-09-17 16:56 | ADMGEN ---
This patient, Mario Yepez, was admitted to 2 Medical Room 240-01. Patient/family oriented to hospital policies and general routines including ID bracelet, bed and alarms, visiting hours, pain management, procedures, bathroom and other care routines, personal items, smoking policy, room service/diet, and visiting hours. Information on how to activate the Rapid Response Team has been discussed. Patient/Family are encouraged to report perceived risks to care and to ask questions if they do not understand what they are told or what they should do.
--- NOTE | 2022-09-17 19:06 | PM.IMHP ---
H&P: HPI History of Present Illness Date/Time: 09/17/22 19:06 Chief Complaint: Possible UTI. Narrative: This is an 82-year-old male patient who splits his time between his [place] home and his [place] home. The patient has had a history of having kidney stones in the past. The patient stated that he was treated for a urinary tract infection and thought it was cleared up and then found that he had another UTI 3 weeks ago. He also found out that the antibiotics may not have worked for him. Patient started to have burning urination approximately 1 week ago. And then 2 days ago he developed right flank pain. The patient stated that he went to the urgent care today and explained to them that he was having right flank pain that felt like he had a kidney stone. The patient was also found to have UTI. His previous cultures were resistant and they were only sensitive to vancomycin macrobid and ampicillin. The patient was given vancomycin in the emergency room. The patient developed a red base in the emergency room and he was given Benadryl and Pepcid. His vancomycin was stopped and then he was restarted on ampicillin and seemed to do well with that. His white count was found to be 11.7. Abdominal pelvis CT was read as a following IMRESSION:? Approximately 2.9 x 5.8 mm obstructing right distal ureteral calculus with moderate right hydroureteronephrosis Nonobstructive right renal calculi Left parapelvic renal cysts Left hepatic probable cysts Prominent prostate enlargement with moderate diffuse bladder wall thickening Diverticulosis of left colon; no evidence of diverticulitis Normal appendix Urology has been consulted. The patient is being admitted to inpatient status on 09/17/2022. Review of Systems Review of Systems: All systems reviewed & are unremarkable except as noted in HPI and below Constitutional: Constitutional: Reports as per HPI and Reports no additional constitutional complaints Eyes: Eyes: Reports as per HPI and Reports no additional eye complaints ENT: Reports system reviewed and no additional complaints, except as documented and Reports Normal hearing present Cardiovascular: Cardiovascular: Reports no additional cardiovascular complaints Respiratory: Respiratory: Reports no additional respiratory complaints and Reports no additional respiratory complaints Gastrointestinal: Gastrointestinal: Reports as per HPI and Reports no additional gastrointestinal complaints Musculoskeletal: Musculoskeletal: Reports no additional musculoskeletal complaints Integumentary/Breasts: Skin/Breast: Reports system reviewed and no additional complaints, except as docu and Reports as per HPI Neurologic: Reports system reviewed and no additional complaints, except as documented, Reports as per HPI and Reports Normal hearing present Psychiatric: Psychiatric: Reports no additional psychiatric complaints and Reports as per HPI Endocrine: Endocrine: Reports no additional endocrine complaints Hematologic/Lymphatic: Hematologic/Lymphatic: Reports no additional hematologic/lymphatic complaints Allergic/Immunologic: Allergic/Immunologic: Reports no additional allergic/immunologic complaints [facility] Past Medical History Medical History (Updated 09/17/22 @ 22:41 by Kamala Rodriguez NP) Anxiety BPH (benign prostatic hyperplasia) Cerumen impaction Hyperlipidemia EMANI on CPAP Surgical History Surgical History (Updated 09/17/22 @ 22:32 by Kamala Rodriguez NP) H/O rectal polypectomy H/O 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 He lives with his . He has 1 son. He is retired from being
--- NOTE | 2022-09-17 23:27 | PCRCNOTE ---
Pt does not have or wear a CPAP @ home and does not want one here
[2022-09-17] MEDS: ALPRAZolam (*CRX) 0.5 MG TABLET PO (23:46)
[2022-09-17] MEDS: TAMSULOSIN HCL 0.4 MG CAPSULE PO (23:46)
[2022-09-18] VITALS (10 sets, daily range): BP systolic 100–142; BP diastolic 60–88; PULSE 57–80; RESP 12–18; TEMP 36.3–36.9; O2SAT 96–100
[2022-09-18] MEDS: AMPICILLIN 1 GM/NS 50 ML 1 GM/50 ML BAG IVPB ×4 (04:26→22:17)
[2022-09-18 05:44] LABS: Basophils Percent Auto 0.3 % (0.2-1.2); Eosinophils Absolute Auto 0.2 K/mm3 (0-0.3); Eosinophils Percent Auto 2.8 % (0-4.4); Hematocrit 40.4 % (42.0-52.0); Hemoglobin 13.1 g/dL (14.0-18.0); Immature Granulocyte Absolute 0.01 K/mm3 (0.00-0.031); Immature Granulocyte Percent A 0.2 % (0-0.5); Lymphocytes Absolute Auto 2.15 K/mm3 (0.9-3.2); Lymphocytes Percent Auto 33.8 % (18.3-44.2); Mean Corpuscular HGB Conc 32.4 g/dl (32-36); Mean Corpuscular Hemoglobin 30.6 pg (26-34); Mean Corpuscular Volume 94.4 fl (80-100); Mean Platelet Volume 9.9 fl (7.4-10.4); Monocytes Absolute Auto 0.7 K/mm3 (0.1-0.6); Monocytes Percent Auto 10.8 % (2.6-8.5); Neutrophils Absolute Auto 3.3 K/mm3 (1.3-6.7); Neutrophils Percent Auto 52.1 % (45.5-73.1); Platelet Count Result 211 k/mm3 (150-375); Red Blood Count 4.28 M/mm3 (4.6-6.20); White Blood Count 6.4 K/mm3 (4.5-10.0)
[2022-09-18 05:55] LABS: Lactic Acid Reflex 1.5 mmol/L (0.7-2.0)
[2022-09-18 05:59] LABS: Alanine Aminotransferase 28 U/L (6-50); Albumin Level 3.3 g/dL (3.5-5.1); Alkaline Phosphatase 45 U/L (38-126); Anion Gap 6 mmol/L (8-16); Aspartate Amino Transferase 30 U/L (17-59); Bilirubin,Total 0.9 mg/dL (0.2-1.3); Blood Urea Nitrogen 22 mg/dL (9-20); Calcium 8.5 mg/dL (8.4-10.2); Carbon Dioxide 29 mmol/L (22-30); Chloride 104 mmol/L (98-107); Estimated CRCL calculation 32 ml/min; Estimated Glomerular Filt Rate 53; Glucose 92 mg/dL (65-110); Potassium 4.3 mmol/L (3.4-5.0); Sodium 139 mmol/L (137-145)
--- NOTE | 2022-09-18 06:40 | WPDHPUPDATE1 ---
History and Physical Update Update Date/Time: 09/18/22 06:40 History and Physical has been reviewed, including an updated exam of the patient. There are NO changes in the patient's condition. Risks, benefits, and alternatives have been discussed and questions answered. Patient agrees to proceed with procedure.
--- NOTE | 2022-09-18 11:37 | WPDANESEPPF ---
Anes - Initial Pre Proc Eval Procedure: Operation Date: 09/18/22 12:15 Proposed Procedures p Cystoscopy,Right Retrograde Pyelogram,Right Stent Placement(Right) - Jeffry Harris MD Date/Time: 09/18/22 11:37 Surgeon: Johnny Butler MD Pre Op Diagnosis: Pyelonephritis, obstructing right uretolithiasis Patient Data Age: 82 Gender: M Height: 1.6 m Weight: 67.6 kg Last Vital Signs Temp 36.5 C 09/18/22 03:24 Pulse 60 09/18/22 03:24 Resp 16 09/18/22 03:24 BP 100/60 09/18/22 03:24 Pulse Ox 97 09/18/22 03:24 O2 Del Method Room Air 09/17/22 22:00 Allergies Allergy/AdvReac Type Severity Reaction Status Date / Time bacitracin Allergy Intermediate RASH Verified 09/17/22 16:56 neomycin Allergy Intermediate RASH Verified 09/17/22 16:56 polymyxin B Allergy Intermediate RASH Verified 09/17/22 16:56 diphenhydramine AdvReac Hallucinati Verified 09/17/22 16:56 [From Benadryl] ng vancomycin AdvReac Rash Verified 09/17/22 16:56 Home Medications Medication Instructions Recorded Confirmed Type simvastatin 20 mg tablet 20 mg PO DAILY #90 tabs 08/21/21 09/17/22 Rx cholecalciferol (vitamin D3) 25 25 mcg PO DAILY 08/18/22 09/17/22 History mcg (1,000 unit) capsule tamsulosin 0.4 mg capsule 0.4 mg PO BID BPH 08/18/22 09/17/22 History alprazolam 0.5 mg tablet 0.5 mg PO QHS PRN Insomnia #60 tabs 08/22/22 09/17/22 Rx multivitamin with minerals-folic 1 tablet PO DAILY 09/17/22 09/17/22 History acid 0.4 mg tablet Laboratory Tests 09/17/22 09/17/22 09/18/22 11:40 11:41 05:24 WBC 11.7 H K/mm3 6.4 K/mm3 (4.5-10.0) (4.5-10.0) RBC 5.17 M/mm3 4.28 L M/mm3 (4.6-6.20) (4.6-6.20) Hgb 16.0 g/dL 13.1 L g/dL (14.0-18.0) (14.0-18.0) Hct 48.5 % 40.4 L % (42.0-52.0) (42.0-52.0) MCV 93.8 fl 94.4 fl (80-100) (80-100) MCH 30.9 pg 30.6 pg (26-34) (26-34) MCHC 33.0 g/dl 32.4 g/dl (32-36) (32-36) RDW 12.9 % 13.0 % (11.5-14.5) (11.5-14.5) Plt Count 227 k/mm3 211 k/mm3 (150-375) (150-375) MPV 9.9 fl 9.9 fl (7.4-10.4) (7.4-10.4) Immature Gran % (Auto) 0.3 % 0.2 % (0-0.5) (0-0.5) Neut % (Auto) 89.4 H % 52.1 % (45.5-73.1) (45.5-73.1) Lymph % (Auto) 6.5 L % 33.8 % (18.3-44.2) (18.3-44.2) Stewart % (Auto) 3.4 % 10.8 H % (2.6-8.5) (2.6-8.5) Eos % (Auto) 0.1 % 2.8 % (0-4.4) (0-4.4) Baso % (Auto) 0.3 % 0.3 % (0.2-1.2) (0.2-1.2) Lymph # (Auto) 0.76 L K/mm3 2.15 K/mm3 (0.9-3.2) (0.9-3.2) Stewart # (Auto) 0.4 K/mm3 0.7 H K/mm3 (0.1-0.6) (0.1-0.6) Eos # (Auto) 0.0 K/mm3 0.2 K/mm3 (0-0.3) (0-0.3) Baso # (Auto) 0.0 K/mm3 0.0 K/mm3 (0.0-0.1) (0.0-0.1) Abs Immat Gran (auto) 0.03 K/mm3 0.01 K/mm3 (0.00-0.031) (0.00-0.031) Absolute Neuts (auto) 10.4 H K/mm3 3.3 K/mm3 (1.3-6.7) (1.3-6.7) Absolute Nucleated RBC 0.0 K/mm3 0.0 K/mm3 (0.0-0.012) (0.0-0.012) Nucleated RBC % 0.0 % 0.0 % (0.0-0.2) (0.0-0.2) Sodium 140 mmol/L 139 mmol/L (137-145) (137-145) Potassium 4.3 mmol/L 4.3 mmol/L (3.4-5.0) (3.4-5.0) Chloride 104 mmol/L 104 mmol/L (98-107) (98-107) Carbon Dioxide 28 mmol/L 29 mmol/L (22-30) (22-30) Anion Gap 8 mmol/L 6 L mmol/L (8-16) (8-16) BUN 22 H mg/dL 22 H mg/dL (9-20) (9-20) Creatinine 1.20 mg/dL 1.30 mg/dL (0.7-1.3) (0.7-1.3) Estim Creat Clear Calc 35 ml/min 32 ml/min Estimated GFR 58 L 53 L (59 - ) (59 - ) Glucose 111 H mg/dL 92 mg/dL (65-110) (65-110) Lactic Acid 1.2 mmol/L 1.5 mmol/L (0.7-2.0) (0.7-2.0) Calcium 9.2 mg/dL 8.5 mg/dL (8.4-10.2) (8.4-10.2) Magnesium 2.0 mg/dL (1.6-2.3) Total Bilirubin 1.0 mg/dL 0.9 mg/dL (0.2-1.3) (0.2-1.3) AST 42 U/L 30 U/L (17-59) (17-59) ALT 39
--- NOTE | 2022-09-18 11:41 | PM.IMPN ---
Progress Note: A&P Assessment and Plan (1) Acute pyelonephritis: Code(s): N10 - Acute pyelonephritis Status: Acute Assessment and Plan: Patient was started on vancomycin but then had a red face. Urine and blood cultures are pending. CT was read as a following pproximately 2.9 x 5.8 mm obstructing right distal ureteral calculus with moderate right hydroureteronephrosis Nonobstructive right renal calculi Left parapelvic renal cysts Left hepatic probable cysts Prominent prostate enlargement with moderate diffuse bladder wall thickening Diverticulosis of left colon; no evidence of diverticulitis Normal appendix (2) Right ureteral stone: Code(s): N20.1 - Calculus of ureter Status: Acute Assessment and Plan: approximately 2.9 x 5.8 mm obstructing right distal ureteral calculus with moderate right hydroureteronephrosis Nonobstructive right renal calculi Left parapelvic renal cysts Left hepatic probable cysts Prominent prostate enlargement with moderate diffuse bladder wall thickening Diverticulosis of left colon; no evidence of diverticulitis Normal appendix Continue with antibiotics urine and blood cultures are pending. The patient will be NPO after midnight.Obtain Consent: Cystoscopy, right stent placement, right retrograde pyelogram. Plan to go to the OR tomorrow with Dr. Harris. Patient will need definitive stone management as an outpatient once infection resolves. Continue with Flomax. (3) EMANI on CPAP: Code(s): G47.33 - Obstructive sleep apnea (adult) (pediatric) Status: Acute Assessment and Plan: Continue with home settings for CPAP/BiPAP (4) BPH (benign prostatic hyperplasia): Code(s): N40.0 - Benign prostatic hyperplasia without lower urinary tract symptoms Status: Acute Assessment and Plan: Continue with tamsulosin (5) Insomnia, unspecified: Qualifiers: Insomnia type: primary Qualified Code(s): F51.01 - Primary insomnia Code(s): G47.00 - Insomnia, unspecified Status: Acute Assessment and Plan: Continue with p.r.n. alprazolam (6) Hyperlipidemia: Code(s): E78.5 - Hyperlipidemia, unspecified Status: Acute Assessment and Plan: Continue with simvastatin Subjective Date/time seen: 09/18/22 11:41 Interval history: No complaints Exam Const: General: cooperative, healthy appearing, comfortable, no acute distress, well developed, alert, awake, Physically active, average body habitus and well nourished Nutritional Appearance: average body habitus and well nourished Orientation/consciousness: oriented to person, oriented to place, oriented to time and patient oriented x3 Limitations: no limitations HENMT: Head: normal to inspection, No palpable skull fracture present, normocephalic, atraumatic and abrasion Ears: hearing grossly normal bilaterally and external ears normal Face/Nose/Sinus: Normal external nose present and Normal nares present Eyes: General: appearance normal, both eyes and all related structures Alignment and Position: alignment normal Periorbital: periorbital findings normal Eyelids: eyelids normal Sclera: sclerae normal Pupils: Equal, round and reactive pupils present EOM: EOMs intact bilaterally Neck: Neck: normal visual inspection, full ROM, no lymphadenopathy, trachea midline and supple Chest: Chest palpation & inspection: normal inspection of the chest Resp: Effort & Inspection: normal respiratory effort Auscultation: clear to auscultation bilaterally Cardio: Palpation: normal PMI Rate: regular rate Rhythm: regular rhythm Heart sounds: S1 normal heart sound present and S2 normal heart sound present Peripheral pulses: Peripheral pulses 2+ throughout GI: Inspection: normal to inspection Auscultation: normal bowel sounds Rectal Exam: deferred Back/Spine/Pelvis: Cervical Spine: cervical ROM normal Skin: General skin exam: normal color Lesions: no lesions R
[2022-09-18] MEDS: LACTATED RINGERS 1,000 ML 30 ML IV CONT (11:45)
--- NOTE | 2022-09-18 12:21 | W.PM.PROC2 ---
Procedure Note - Detailed Date of Procedure 09/18/22 Pre-op Diagnosis Pyelonephritis, obstructing right uretolithiasis Post-op Diagnosis Same Procedure Performed Cystoscopy, right ureteroscopy with stone extraction Surgeon Jeffry Harris MD Anesthesia General Description of Procedure The patient was brought to the operative suite where he is prepped and draped in a routine sterile fashion while in the dorsal lithotomy position after the uneventful induction of a general LMA anesthetic. A 19F rigid cystoscope was placed in the bladder. There are no urethral strictures. His prostatic urethra measures, approximately, 2.0cm with no median lobe enlargement. The bladder mucosa was endoscopically normal without hyperemia or neoplasm. There was a single, orthotopic ureteral orifice bilaterally. A 0.035 glidewire was advanced into the right renal pelvis under fluoroscopy. The distal ureter was dilated with an 8F/10F ureteral dilator. Ureteroscopy was undertaken with a short tapered semi-rigid ureteroscope. With ureteroscopy I was able to extract the stone using a 1.9F Zero-tip disposable stone basket. Due to the extent of this manipulation I did place a 4.8F double-J ureteral stent. The proximal coil of the stent was confirmed to be in the renal pelvis and the distal coil in the bladder. The patient's bladder was emptied and he was taken to the recovery room having tolerated this procedure well. Urine Output 500 Drains Yes Pathology Yes Complications No immediate complications
[2022-09-18] MEDS: CHOLECALCIFEROL 1,000 UNITS TABLET 1000 UNITS PO (13:27)
[2022-09-18] MEDS: THERAPEUTIC MULTIVITAMINS/MINERALS TAB (*BKC) 1 TABLET PO (13:27)
[2022-09-18] MEDS: SIMVASTATIN 20 MG TABLET PO (13:27)
[2022-09-18] MEDS: TAMSULOSIN HCL 0.4 MG CAPSULE PO ×2 (13:27→17:47)
[2022-09-18] MEDS: PSYLLIUM POWDER PACKET 1 PACKET PO (22:18)
[2022-09-18] MEDS: ALPRAZolam (*CRX) 0.5 MG TABLET PO (22:18)
[2022-09-19 01:00] VITALS: BP 108/51; PULSE 68; RESP 16; TEMP 36.4; O2SAT 98
[2022-09-19 04:00] VITALS: BP 118/59; PULSE 78; RESP 18; TEMP 36.6; O2SAT 96
[2022-09-19] MEDS: AMPICILLIN 1 GM/NS 50 ML 1 GM/50 ML BAG IVPB ×2 (04:01→10:23)
--- NOTE | 2022-09-19 07:19 | WPDUROPN2 ---
Progress Note: A&P Assessment and Plan (1) Acute pyelonephritis: Code(s): N10 - Acute pyelonephritis Status: Acute (2) Right ureteral stone: Code(s): N20.1 - Calculus of ureter Status: Acute Assessment and Plan: Right ureteral stent removed yesterday but does have a stent - tolerating well. Home anytime (hopefully today) on appropriate oral abx. F/U: 7-10 days for stent removal. Subjective Subjective Date/Time Seen: 09/19/22 07:19 Interval history: Comfortable, tolerating stent Review of Systems Cardiovascular: Cardiovascular: Denies chest pain, Denies lightheadedness, Denies palpitations and Denies dyspnea Respiratory: Respiratory: Denies dyspnea Gastrointestinal: Gastrointestinal: Denies diarrhea, Denies nausea and Denies vomiting Genitourinary: Genitourinary: Denies hematuria and Denies dysuria Endocrine: Endocrine: Denies palpitations Exam Const: General: no acute distress Resp: Effort & Inspection: normal respiratory effort GI: Inspection: non-distended GI Palp: No abdominal tenderness and No Guarding due to palpation present (GI) Auscultation: normal bowel sounds Objective Data Vital Signs Vital Signs: Vital Signs - 24 hr 09/18/22 11:40 09/18/22 12:15 09/18/22 12:35 Temperature 98.5 F 97.3 F L Pulse Rate 72 60 60 Respiratory Rate 16 12 16 Blood Pressure 135/88 102/65 123/77 Pulse Oximetry 99 100 100 Oxygen Delivery Room Air Simple Face Mask Simple Face Mask Oxygen Flow Rate 8 8 09/18/22 13:12 09/18/22 13:38 09/18/22 14:33 Temperature 97.8 F 97.8 F 97.5 F L Pulse Rate 64 57 L 77 Respiratory Rate 16 16 18 Blood Pressure 128/72 142/63 H 116/61 Pulse Oximetry 97 99 98 Oxygen Delivery Oxygen Flow Rate 09/18/22 17:48 09/18/22 18:17 09/18/22 21:32 Temperature 98.0 F 97.6 F Pulse Rate 80 77 Respiratory Rate 18 18 Blood Pressure 128/67 126/79 Pulse Oximetry 97 96 97 Oxygen Delivery Room Air Oxygen Flow Rate 09/19/22 01:00 09/18/22 22:05 09/19/22 04:00 Temperature 97.5 F L 97.9 F Pulse Rate 68 78 Respiratory Rate 16 18 Blood Pressure 108/51 L 118/59 L Pulse Oximetry 98 96 Oxygen Delivery Room Air Oxygen Flow Rate Intake/Output Intake/Output: Intake & Output 09/16/22 09/17/22 09/18/22 09/19/22 23:59 23:59 23:59 23:59 Intake Total 170 1820 200 Output Total 0 1300 Balance 170 520 200 Meds/Results Medications: Active Medications Generic Name Dose Route Start Last Admin Trade Name Freq PRN Reason Stop Dose Admin Hydrocodone Bitart/Acetaminophen 1 tab 09/17/22 17:35 Hydrocodone/Acetaminophen (*Crx) 5-325 Mg Tablet PO Q4H PRN Pain Rated 4-6 Alprazolam 0.5 mg 09/17/22 22:35 09/18/22 22:18 Alprazolam (*Crx) 0.5 Mg Tablet PO 0.5 mg QHS PRN Administration Insomnia Fentanyl Citrate 25 mcg 09/18/22 11:39 Fentanyl Citrate Inj (*Crx) 100 Mcg/2 Ml Vial IV PUSH Q2M PRN Pain Ampicillin Sodium 1 gm in 50 mls @ 100 mls/hr 09/17/22 22:00 09/19/22 04:01 Ampicillin 1 Gm/Ns 50 Ml IVPB 100 mls/hr Q6H JOHN Administration Lactated Ringer's 1,000 mls @ 30 mls/hr 09/18/22 11:40 09/18/22 12:53 Lr - Lactated Ringers Iv IV CONT Infused .Q24H JOHN Infusion Lactated Ringer's 1,000 mls @ 30 mls/hr 09/18/22 11:40 Lr - Lactated Ringers Iv IV CONT .Q24H JOHN Morphine Sulfate 2 mg 09/17/22 17:35 Morphine Sulfate (*Crx) 2 Mg/Ml Inj IV PUSH Q4H PRN Pain Rated 7-10 Multivitamins/Calcium 1 tablet 09/18/22 09:00 09/18/22 13:27 Therapeutic Multivitamins/Minerals Tab (*Bkc) PO 1 tablet DAILY JOHN Administration Naloxone HCl 0.1 mg 09/17/22 17:35 Naloxone Hcl 0.4 Mg/Ml Vial IV PUSH Q5MIN PRN overdose Ondansetron HCl 4 mg 09/17/22 17:35 Ondansetron Inj 4 Mg/2 Ml Vial IV PUSH Q4H PRN Nausea And Vomiting Ondansetron HCl 4 mg 09/18/22 11:39 Ondansetron Inj 4 Mg/2 Ml Vial IV PUSH
[2022-09-19] MEDS: CHOLECALCIFEROL 1,000 UNITS TABLET 1000 UNITS PO (08:03)
[2022-09-19] MEDS: THERAPEUTIC MULTIVITAMINS/MINERALS TAB (*BKC) 1 TABLET PO (08:03)
[2022-09-19] MEDS: SIMVASTATIN 20 MG TABLET PO (08:04)
[2022-09-19] MEDS: TAMSULOSIN HCL 0.4 MG CAPSULE PO (08:05)
--- NOTE | 2022-09-19 11:01 | PM.DS ---
DS: Admitting Diagnosis Discharge Date September 19, 2022 Admitting Diagnosis Ureteral stone, UTI DS: Discharge Diagnosis Discharge Diagnosis (1) Acute pyelonephritis: Code(s): N10 - Acute pyelonephritis Status: Acute Assessment and Plan: Patient was started on vancomycin but then had a red face. Urine and blood cultures are pending. CT was read as a following pproximately 2.9 x 5.8 mm obstructing right distal ureteral calculus with moderate right hydroureteronephrosis Nonobstructive right renal calculi Left parapelvic renal cysts Left hepatic probable cysts Prominent prostate enlargement with moderate diffuse bladder wall thickening Diverticulosis of left colon; no evidence of diverticulitis Normal appendix (2) Right ureteral stone: Code(s): N20.1 - Calculus of ureter Status: Acute Assessment and Plan: approximately 2.9 x 5.8 mm obstructing right distal ureteral calculus with moderate right hydroureteronephrosis Nonobstructive right renal calculi Left parapelvic renal cysts Left hepatic probable cysts Prominent prostate enlargement with moderate diffuse bladder wall thickening Diverticulosis of left colon; no evidence of diverticulitis Normal appendix Continue with antibiotics urine and blood cultures are pending. The patient will be NPO after midnight.Obtain Consent: Cystoscopy, right stent placement, right retrograde pyelogram. Plan to go to the OR tomorrow with Dr. Harris. Patient will need definitive stone management as an outpatient once infection resolves. Continue with Flomax. (3) EMANI on CPAP: Code(s): G47.33 - Obstructive sleep apnea (adult) (pediatric) Status: Acute Assessment and Plan: Continue with home settings for CPAP/BiPAP (4) BPH (benign prostatic hyperplasia): Code(s): N40.0 - Benign prostatic hyperplasia without lower urinary tract symptoms Status: Acute Assessment and Plan: Continue with tamsulosin (5) Insomnia, unspecified: Qualifiers: Insomnia type: primary Qualified Code(s): F51.01 - Primary insomnia Code(s): G47.00 - Insomnia, unspecified Status: Acute Assessment and Plan: Continue with p.r.n. alprazolam (6) Hyperlipidemia: Code(s): E78.5 - Hyperlipidemia, unspecified Status: Acute Assessment and Plan: Continue with simvastatin DS: Summary Hospital Course Hospital Course: Admitted for ureteral stone with obstructive uropathy and UTI. Discharged on antibiotics. Status post stent placement by Urology. Follow-up with Urology. Time Spent with Patient Time attestation: Total time spent providing and/or coordinating discharge services: Exam Const: General: cooperative, healthy appearing, comfortable, no acute distress, well developed, alert, awake, Physically active, average body habitus and well nourished Nutritional Appearance: average body habitus and well nourished Orientation/consciousness: oriented to person, oriented to place, oriented to time and patient oriented x3 Limitations: no limitations HENMT: Head: normal to inspection, No palpable skull fracture present, normocephalic, atraumatic and abrasion Ears: hearing grossly normal bilaterally and external ears normal Face/Nose/Sinus: Normal external nose present and Normal nares present Eyes: General: appearance normal, both eyes and all related structures Alignment and Position: alignment normal Periorbital: periorbital findings normal Eyelids: eyelids normal Sclera: sclerae normal Pupils: Equal, round and reactive pupils present EOM: EOMs intact bilaterally Neck: Neck: normal visual inspection, full ROM, no lymphadenopathy, trachea midline and supple Chest: Chest palpation & inspection: normal inspection of the chest Resp: Effort & Inspection: normal respiratory effort Auscultation: clear to auscultation bilaterally Cardio: Palpation: normal PMI Rate: regular rate Rhythm: regular rhythm Heart s
== END 2022-09-19 12:07 | disposition home or self-care (01) | DRG 690 ==
LOC: ANHED 15:28 → ANH2MED 16:45
PROVIDERS: General Practice; Nurse Practitioner; Urology; Admitting Provider Chiropractor; Emergency Provider Nurse Practitioner Family; PCP Emergency Medicine; Visit Provider Chiropractor
PROC: 0TC68ZZ Extirpation of Matter from Right Ureter, Via Natural or Artificial Opening Endoscopic (ICD-10-PCS; CPT 52352; principal; 2022-09-18 12:15)
DX: N13.6 Pyonephrosis (principal); N40.0 Benign prostatic hyperplasia without lower urinary tract symptoms; G47.33 Obstructive sleep apnea (adult) (pediatric); G47.00 Insomnia, unspecified; E78.5 Hyperlipidemia, unspecified; F41.9 Anxiety disorder, unspecified; K57.90 Diverticulosis of intestine, part unspecified, without perforation or abscess without bleeding; N28.1 Cyst of kidney, acquired; K76.89 Other specified diseases of liver
CPT/HCPCS: 36415; 74018; 74177; 80053; 81001; 81003; 82365; 83605; 83735; 84443; 85025; 87040; 87086; 88300; 96365; 99213; 99285; A9270; C1769; C2617; G0463; J0290; J1100; J1200; J2405; J2704; J3010; J3370; J7120; Q9966; Q9967

== ENCOUNTER 2023-09-28 09:17 | Outpatient (CLI) | payer MEDICARE, SELFPAY ==
--- NOTE | ~2023-09-28 | XR_ITS ---
XR abdomen/kub 1V Ordering provider: Jeffry Harris MD History: . HX KIDNEY STONES . Comparison: September 17, 2022 FINDINGS: BOWEL: Fecal material loaded in the colon suggestive of constipation. Nonobstructive bowel gas patter n. ORGANOMEGALY: None. SIGNIFICANT PATHOLOGIC CALCIFICATIONS: None. Calcifications seen in the pelvis are most likely phle bolith' s. OTHER: Calcified granuloma in the left lower lobe area. No free air is seen under the diaphragm. IMPRESSION: NO ACUTE ABDOMINAL FINDINGS. Constipation. Reviewed, dictated and finalized at location A.
== END 2023-09-28 09:18 | disposition home or self-care (01) ==
LOC: ANHIMG 09:24
PROVIDERS: Visit Provider Urology
DX: N20.0 Calculus of kidney (principal); K59.00 Constipation, unspecified
CPT/HCPCS: 74018

== ENCOUNTER 2024-08-06 10:03 | Emergency (ER) | payer MEDICARE, SELFPAY ==
[2024-08-06 10:20] VITALS: BP 116/74; PULSE 87; RESP 20; TEMP 36.6; O2SAT 96
--- NOTE | 2024-08-06 10:26 | ED_ITS ---
HPI - Skin/Abscess/Foreign Bdy General Stated complaint: WOUND TO L LEG Time Seen by Provider: 08/06/24 10:26 Source: patient Mode of arrival: ambulatory Limitations: no limitations History of Present Illness HPI narrative: 84 yo M presents stating he has had a red spot behind his L knee for months that has been growing in size over the past few months. Yesterday noticed it was bleeding but has since stopped. Arrived with bandaid in place. All systems reviewed and negative except as noted above. Related Data Home Medications ?Medication ?Instructions ?Recorded ?Confirmed ?Last Taken ?Type cholecalciferol (vitamin D3) 25 25 mcg PO DAILY 08/18/22 09/17/22 Unknown History mcg (1,000 unit) capsule tamsulosin 0.4 mg capsule 0.4 mg PO BID BPH 08/18/22 09/17/22 Unknown History multivitamin with minerals-folic 1 tablet PO DAILY 09/17/22 09/17/22 Unknown History acid 0.4 mg tablet carbidopa 25 mg-levodopa 100 mg tablet 08/06/24 Unknown History tablet ropinirole 0.5 mg tablet mg 08/06/24 Unknown History Allergies Allergy/AdvReac Type Severity Reaction Status Date / Time bacitracin Allergy Intermediate RASH Verified 08/06/24 10:28 neomycin Allergy Intermediate RASH Verified 08/06/24 10:28 polymyxin B Allergy Intermediate RASH Verified 08/06/24 10:28 diphenhydramine (From AdvReac Hallucinati Verified 08/06/24 10:28 Benadryl) ng vancomycin AdvReac Rash Verified 08/06/24 10:28 Review of Systems Review of Systems: CONSTITUTIONAL: Denies fever, chills, or sweats. EYES: Denies visual changes, redness, or discharge. ENT: Denies rhinorrhea, congestion, sore throat, or otalgia. CARDIOVASCULAR: Denies chest pain, palpitations, or edema. RESPIRATORY: Denies cough or dyspnea. GASTROINTESTINAL: Denies abdominal pain, nausea, vomiting, or diarrhea. GENITOURINARY: Denies dysuria or hematuria. SKIN: Denies rash or itching. Reports bleeding lesion to L leg MUSCULOSKELETAL: Denies back pain, joint pain, or myalgia. NEUROLOGIC: Denies headache, numbness, or weakness. PSYCHIATRIC: Denies anxiety or depression. All other systems reviewed are negative, except as documented in HPI. PMFSH Past Medical History Medical History Anxiety BPH (benign prostatic hyperplasia) Cerumen impaction Hyperlipidemia EMANI on CPAP Surgical History Surgical History H/O rectal polypectomy H/O 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 History of extraction of renal calculus Family History Family History Grandparent Acute myocardial infarction Social History Social History Social History: The patient splits his time between [place] and [place]. He lives with his . He has 1 son. He is retired from being a hahn. Lifelong nonsmoker. His is the durable power attorney lawyer for healthcare. Code status full code Smoking status: Never smoker Alcohol intake: former Alcohol use details: occasional Substance use: never Substance use type: does not use Lack of Transportation: No Lack of Food: Never True Current Housing: I Have Housing Concerned About Future Housing: No Difficulty Paying Gas/Electric Bills: No Difficulty Paying for Meds: No Currently Unemployed: No Education: High School Diploma/GED Difficulty w/ Childcare or Family Care: No Living arrangements: with family Gender identity (if verbalized by the patient): Male Spiritual care concerns: No Comments At time of signature, agree with nursing past medical, surgical, social and family history. There is no relevant family history pertinent to the presenting complaint. Exam Narrative: GENERAL: This is a well-nourished, well-developed patient, in no apparent distress. HEAD: normocephalic, atraumatic. EYES: PERRL. Sclera clear/white. Vision is grossly intact. EARS: External ears normal NOSE: External nose normal NECK: Neck supple, non-tender without lymphadenopathy, masses or thyromegaly. CARDIOVASCULAR: Regular rate and rhythm without murmurs, gallops, or rubs. RESPIRATORY: Clear to auscultation. Breath sounds equal bilaterally. No wheezes, rales, or rhonchi. SKIN: warm, Dry, intact with no rash, good texture and turgor. lesion to posterior L knee, purplish color with dried blood. NEURO: awake, alert, and oriented to person, place and time. There were no obvious focal neurologic abnormalities. EXTREMITIES: No joint tenderness, effusion, or edema noted. Course Course Level of Care: Express Care Visit Vital Signs Vital signs: reviewed MDM - Skin/Abscess/Foreign Bdy MDM Narrative Medical decision making narrative: skin tag or bardales angioma type lesion to posterior L knee, not actively bleeding. recommend pt follow up with dermatology in case lesion needs biopsy as pt has said progressively got larger over past month. pt agrees with plan of care. recommend he keep bandaid in place so lesion is not catching on clothes and bleeding. Discharge Plan Discharge Clinical Impression: Skin tag Patient Disposition: Home Condition: Stable Additional Instructions: Follow up with veterans rehabilitation counselor for further evaluation. [facility] [phone] [facility] [phone] Patient Language: Albanian Prescriptions: No Action tamsulosin 0.4 mg capsule 0.4 mg PO BID cholecalciferol (vitamin D3) 25 mcg (1,000 unit) capsule 25 mcg PO DAILY multivit with min-folic acid 0.4 mg Tablet 1 tablet PO DAILY amoxicillin-pot clavulanate 875-125 mg tablet 1 tablet PO Q12H 5 Days Qty: 10 0RF simvastatin 20 mg tablet 20 mg PO DAILY Qty: 90 2RF Rx Instructions: TAKE 1 TABLET BY MOUTH DAILY alprazolam 0.5 mg tablet 0.5 mg PO QHS PRN (Reason: Insomnia) Qty: 60 0RF Follow-up/Referrals: Bimal,Romaine Rodriguez MD [Primary Care Provider] - Time of Disposition: 10:43
== END 2024-08-06 10:45 | disposition home or self-care (01) ==
PROVIDERS: Emergency Provider Nurse Practitioner Family; PCP Family Medicine
DX: L91.8 Other hypertrophic disorders of the skin (principal); N40.0 Benign prostatic hyperplasia without lower urinary tract symptoms; E78.5 Hyperlipidemia, unspecified; G47.33 Obstructive sleep apnea (adult) (pediatric); F41.9 Anxiety disorder, unspecified
CPT/HCPCS: 99211; G0463